=== PATIENT | male | born 1995 | race Caucasian/White ===

== ENCOUNTER 2019-06-30 15:48 | Emergency (ER) | payer OTHER ==
[~2019-06-30] VITALS: Ht 185.4 cm; Wt 64.9 kg
--- NOTE | 2019-06-30 15:59 | NUR ---
PT AAOX4. AMBULATORY WITH STEADY GAIT. PT C/O back of the head pain x 2 days. NO Neuro deficit noted. vss. Awaiting MD for eval.
[2019-06-30] MEDS ORDERED: KETOROLAC TROMETHAMINE INJ 30 MG/ML VIAL IV ONE (16:30)
[2019-06-30] MEDS ORDERED: METOCLOPRAMIDE HCL 10 MG/2 ML VIAL IV ONE (16:30)
[2019-06-30] MEDS ORDERED: ONDANSETRON HCL/PF 4 MG/2 ML VIAL IVP ONE (16:30)
[2019-06-30] MEDS ORDERED: diphenhydrAMINE HCL 50 MG/ML VIAL IV ONE (16:30)
[2019-06-30] MEDS ORDERED: IV NS 0.9% 1,000 ML BAG IV ONE (16:30)
[2019-06-30] MEDS ORDERED: IV NS 0.9% 250 ML BAG IV ONE (16:30)
[2019-06-30] MEDS ORDERED: KETOROLAC TROMETHAMINE INJ 30 MG/ML VIAL ONE (16:31)
[2019-06-30] MEDS ORDERED: diphenhydrAMINE HCL 50 MG/ML VIAL ONE (16:32)
[2019-06-30] MEDS ORDERED: METOCLOPRAMIDE HCL 10 MG/2 ML VIAL ONE (16:32)
[2019-06-30] MEDS ORDERED: ONDANSETRON HCL/PF 4 MG/2 ML VIAL ONE (16:32)
[2019-06-30 16:46] LABS: BASOPHILS % (AUTO) 0.8 % (0.0-2.0); EOSINOPHILS % (AUTO) 0.1 % (0.0-6.0); HEMATOCRIT 47 % (39-51); HEMOGLOBIN 16.2 g/dL (13.5-17.5); LYMPHOCYTES % (AUTO) 24.1 % (20.0-44.0); MEAN CORPUSCULAR HGB CONC 34 g/dl (31.0-36.0); MEAN CORPUSCULAR VOLUME 90 fL (80-96); MONOCYTES # (AUTO) 0.6 /CMM (0.1-1.30); MONOCYTES % (AUTO) 14.1 % (2.0-12.0); NEUTROPHILS # (AUTO) 2.5 /CMM (1.8-8.9); NEUTROPHILS % (AUTO) 60.9 % (43.0-81.0); PLATELET COUNT (AUTO) 129 /CMM (150-450)
[2019-06-30 17:07] LABS: CALCIUM, SERUM 9.1 mg/dL (8.5-10.1); CREATININE 0.9 mg/dL (0.6-1.3); POTASSIUM 4.2 mmol/L (3.5-5.1)
--- NOTE | 2019-06-30 17:22 | NUR ---
Patient is resting comfortably in bed. Easily aroused. VSS.
--- NOTE | 2019-06-30 17:44 | NUR ---
IV removed. Catheter intact and site benign. Pressure and 4x4 applied to site. No bleeding noted.
--- NOTE | 2019-06-30 17:49 | NUR ---
Patient discharged to home in stable condition. Written and verbal after care instructions given. Patient verbalizes understanding of instruction. pt ambulatory with a steady gait.
[2019-06-30 17:50] VITALS: BP 125/75
== END 2019-06-30 17:50 | disposition home or self-care (01) ==
LOC: ER 15:55
DX: B34.9 Viral infection, unspecified (principal); R51 Headache; R42 Dizziness and giddiness
CPT/HCPCS: 36415; 80048; 85025; 96361; 96374; 96375; 99283; J1200; J1885; J2405; J2765; J7030 ×2; J7050